=== PATIENT | female | born 1955 | race Caucasian/White ===

== ENCOUNTER 2019-04-30 05:13 | Inpatient (IN) | payer MEDICARE ==
[~2019-04-30] VITALS: Ht 152.4 cm; Wt 87.5 kg
[2019-04-30] MEDS ORDERED: ZOLPIDEM TARTRATE 10 MG TABLET PO PRN (07:15)
[2019-04-30] MEDS ORDERED: LORazepam 2 MG TABLET PO PRN ×2 (07:15→08:15)
[2019-04-30] MEDS ORDERED: QUEtiapine FUMARATE 100 MG TABLET PO PRN ×2 (07:15→08:15)
[2019-04-30 10:14] VITALS: BP 139/63
[2019-04-30] MEDS ORDERED: TRAZ-252 PO (10:49)
[2019-04-30] MEDS ORDERED: GABA-531 PO (10:49)
[2019-04-30] MEDS ORDERED: HYDR-1475 PO (10:50)
[2019-04-30] MEDS ORDERED: LOSA25TA2 PO (10:51)
[2019-04-30] MEDS ORDERED: LEVO50 PO (10:51)
[2019-04-30] MEDS ORDERED: INSU100V SQ (10:57)
[2019-04-30] MEDS ORDERED: INSLAN SQ (10:57)
[2019-04-30] MEDS ORDERED: AMLO5TAB9 PO (10:57)
[2019-04-30] MEDS ORDERED: PROP40TA7 PO (10:57)
[2019-04-30] MEDS ORDERED: GLUCAGON,HUMAN RECOMBINANT 1 MG VIAL IM PRN ×2 (11:30→22:15)
[2019-04-30] MEDS ORDERED: INSULIN LISPRO 100 UNITS/ML SQ PRN (11:30)
[2019-04-30] MEDS ORDERED: AMLO10TA7 PO (11:39)
[2019-04-30] MEDS ORDERED: DULO60CA64 PO (11:39)
[2019-04-30] MEDS ORDERED: INSULIN LISPRO 100 UNITS/ML SQ SCH (12:00)
[2019-04-30] MEDS ORDERED: INFLUENZA VIRUS VACCINE QVS 2019-20 (3YR+)/PF 60 MCG/0.5 ML SYRINGE IM ONE (12:30)
[2019-04-30] MEDS ORDERED: PNEUMOCOCCAL VACCINE POLYVALENT 0.5 ML VIAL [PPSV23] IM ONE (12:30)
[2019-04-30] MEDS: GABAPENTIN 300 MG CAPSULE PO SCH ×2 (13:31→18:00)
[2019-04-30 16:13] VITALS: BP 133/68
[2019-04-30 17:19] LABS: GLUCOMETER DEV NAME(LOC) BV2S.; GLUCOSE,POINT OF CARE 310 MG/DL (70-110)
[2019-04-30 20:34] LABS: GLUCOMETER DEV NAME(LOC) BV2S.; GLUCOSE,POINT OF CARE 258 MG/DL (70-110)
[2019-05-01 04:44] VITALS: BP 143/67
[2019-05-01 06:26] LABS: GLUCOMETER DEV NAME(LOC) BV2S.; GLUCOSE,POINT OF CARE 220 MG/DL (70-110)
[2019-05-01] MEDS: LEVOTHYROXINE SODIUM 50 MCG TABLET PO SCH (07:10)
[2019-05-01] MEDS: INSULIN LISPRO 100 UNITS/ML SQ PRN ×3 (07:12→18:56)
[2019-05-01 08:01] LABS: FREE T4 (FREE THYROXINE) 0.82 ng/dL (0.76-1.46); THYROID STIMULATING HORMONE 2.45 uIU/mL (0.36-3.74)
[2019-05-01 08:28] VITALS: BP 129/71
[2019-05-01] MEDS: GABAPENTIN 300 MG CAPSULE PO SCH ×3 (09:22→19:51)
[2019-05-01 11:25] LABS: GLUCOMETER DEV NAME(LOC) BV2S.; GLUCOSE,POINT OF CARE 341 MG/DL (70-110)
[2019-05-01] MEDS: LOSARTAN POTASSIUM 50 MG TABLET PO SCH (13:24)
[2019-05-01] MEDS: BuPROPion HCL XL 150 MG ER TABLET PO SCH (15:29)
[2019-05-01 16:22] LABS: GLUCOMETER DEV NAME(LOC) BV2S.; GLUCOSE,POINT OF CARE 344 MG/DL (70-110)
[2019-05-01 16:37] VITALS: BP 146/72
[2019-05-01 20:19] LABS: GLUCOMETER DEV NAME(LOC) BV2S.; GLUCOSE,POINT OF CARE 374 MG/DL (70-110)
[2019-05-02] MEDS: LEVOTHYROXINE SODIUM 50 MCG TABLET PO SCH (06:14)
[2019-05-02 06:25] LABS: GLUCOMETER DEV NAME(LOC) BV2S.; GLUCOSE,POINT OF CARE 311 MG/DL (70-110)
[2019-05-02 06:31] VITALS: BP 123/68
[2019-05-02] MEDS: INSULIN LISPRO 100 UNITS/ML SQ PRN (06:47)
[2019-05-02 08:34] VITALS: BP 133/62
[2019-05-02] MEDS ORDERED: GABAPENTIN 300 MG CAPSULE PO SCH (09:00)
[2019-05-02] MEDS ORDERED: INSULIN GLARGINE,HUM.REC.ANLOG 100 UNITS/ML SQ SCH (09:00)
[2019-05-02] MEDS: GABAPENTIN 300 MG CAPSULE PO SCH (09:01)
[2019-05-02] MEDS: LOSARTAN POTASSIUM 50 MG TABLET PO SCH (09:01)
[2019-05-02] MEDS: BuPROPion HCL XL 150 MG ER TABLET PO SCH (09:01)
[2019-05-02] MEDS ORDERED: BUPR-93 PO (10:23)
[2019-05-02] MEDS ORDERED: LOSA-88 PO (10:23)
[2019-05-02] MEDS ORDERED: INSLAN SQ (10:23)
== END 2019-05-02 12:45 | disposition home or self-care (01) | DRG 881 ==
LOC: B2S 06:20
PROVIDERS: ADMIT Psychiatry & Neurology Psychiatry; ATTEND Psychiatry & Neurology Psychiatry
DX: F32.9 Major depressive disorder, single episode, unspecified (principal); R45.851 Suicidal ideations; E03.9 Hypothyroidism, unspecified; E11.9 Type 2 diabetes mellitus without complications; G89.29 Other chronic pain; I10 Essential (primary) hypertension; M54.30 Sciatica, unspecified side; Z79.899 Other long term (current) drug therapy
CPT/HCPCS: 84439; 84443; 90686; 90732; J1815